=== PATIENT | female | born 1965 | race Caucasian/White ===

== ENCOUNTER 2021-07-16 21:17 | Inpatient (IN) | payer BC ==
[~2021-07-16 21:17] MED LIST: Iopamidol-370 76% 500 ML 1 ML ONE
[2021-07-16] MEDS ORDERED: Morphine 4 MG/ML VIAL ONE (21:48)
[2021-07-16] MEDS ORDERED: Ondansetron PF 4 MG/2 ML Vial ONE (21:48)
[2021-07-16 21:52] LABS: Hemoglobin 16.8 g/dL (12.0-16.0); Mean Corpuscular HGB CONC 33.1 g/dL (32.0-36.0); Mean Corpuscular Hemoglobin 37.8 pg (27.0-31.0); Mean Platelet Volume 8.2 fL (7.4-10.4); Platelet Count 133 thou/uL (130-400); RBC Distribution Width 13.3 % (11.5-14.5); Red Blood Cell (RBC) Count 4.44 mill/uL (4.20-5.40); White Blood Cell (WBC) Count 12.1 thou/uL (4.8-10.8)
[2021-07-16 21:58] LABS: ALT (SGPT) 95 U/L (8-55); AST (SGOT) 106 U/L (5-34); Albumin 3.5 g/dL (3.5-5.0); Alkaline Phosphatase 86 U/L (40-110); Anion Gap 15 mmol/L (10-20); BUN (Urea Nitrogen) 11 mg/dL (9.8-20.1); Bilirubin, Total 1.1 mg/dL (0.2-1.2); Calc. Creatinine Clearance 0 mL/min (70-130); Calcium 8.4 mg/dL (7.8-10.44); Carbon Dioxide 22 mmol/L (22-29); Chloride 107 mmol/L (98-107); Globulin 3.1 g/dL (2.4-3.5); Glucose 136 mg/dL (70-105); Potassium 3.5 mmol/L (3.5-5.1); Protein, Total 6.6 g/dL (6.0-8.3); Sodium 140 mmol/L (136-145)
[2021-07-16 22:05] LABS: Band 23 % (5-11); Lymphocytes 6 % (21-51); MDiff Complete? YES; Macrocytosis SLIGHT = 6-15 cells (100X) (0-5/hpf); Monocytes 7 % (0-10); Neutrophil 62 % (42-75); Platelet Morphology Comment Appears Adequate; Reactive Lymphocytes 2 % (0-10)
[2021-07-16] MEDS ORDERED: Acetaminophen 500 MG TAB ONE (22:50)
[2021-07-16] MEDS ORDERED: Ketorolac Tromethamine 30 MG/ML VIAL ONE (22:50)
[2021-07-16] MEDS ORDERED: Cyclobenzaprine 10 MG TAB PO PRN (22:57)
[2021-07-16] MEDS ORDERED: traMADol HCl 50 MG TAB PO PRN (22:57)
[2021-07-16] MEDS ORDERED: Ondansetron PF 4 MG/2 ML Vial IVP PRN (22:59)
[2021-07-16] MEDS ORDERED: Promethazine HCl 25 MG/ML VIAL IM PRN (22:59)
[2021-07-16] MEDS ORDERED: hydrALAZINE 20 MG/ML VIAL SLOW IVP PRN (22:59)
[2021-07-17] MEDS: Acetaminophen 500 MG TAB PO SCH ×4 (01:20→17:30)
[2021-07-17] MEDS: Sodium Chloride 0.9% 1,000 ML IV SCH ×2 (01:20→09:25)
[2021-07-17] MEDS: Ketorolac Tromethamine 30 MG/ML VIAL IVP SCH ×2 (01:21→05:28)
[2021-07-17] MEDS: traMADol HCl 50 MG TAB PO SCH ×4 (01:21→17:30)
[2021-07-17 02:15] VITALS: BMI 29.6
[2021-07-17] MEDS: Morphine 2 MG/ML VIAL SLOW IVP PRN (05:27)
[2021-07-17] MEDS ORDERED: Acetaminophen 325 MG TAB PO SCH (06:00)
[2021-07-17 06:55] LABS: #Lymphocytes 1.4 thou/uL (1.20-3.40); #Monocytes 0.4 thou/uL (0.11-0.59); #Neutrophils 4.1 thou/uL (1.40-6.50); %Basophils 0.7 % (0.0-1.0); %Eosinophils 0.7 % (0.0-10.0); %Lymphocytes 23.4 % (21.0-51.0); %Monocytes 6.7 % (0.0-10.0); %Neutrophils 68.5 % (42.0-75.0); Hemoglobin 14.8 g/dL (12.0-16.0); Mean Corpuscular HGB CONC 32.5 g/dL (32.0-36.0); Mean Corpuscular Hemoglobin 37.5 pg (27.0-31.0); Mean Platelet Volume 8.1 fL (7.4-10.4); Platelet Count 157 thou/uL (130-400); RBC Distribution Width 13.2 % (11.5-14.5); Red Blood Cell (RBC) Count 3.93 mill/uL (4.20-5.40)
[2021-07-17 07:14] LABS: Anion Gap 11 mmol/L (10-20); BUN (Urea Nitrogen) 9 mg/dL (9.8-20.1); Calc. Creatinine Clearance 118 mL/min (70-130); Calcium 7.5 mg/dL (7.8-10.44); Carbon Dioxide 24 mmol/L (22-29); Chloride 108 mmol/L (98-107); Glucose 90 mg/dL (70-105); Phosphorus 3.9 mg/dL (2.3-4.7); Potassium 3.5 mmol/L (3.5-5.1); Sodium 139 mmol/L (136-145)
[2021-07-17] MEDS ORDERED: Famotidine/PF 20 mg/2ml Vial SLOW IVP SCH (09:00)
[2021-07-17] MEDS ORDERED: Gabapentin 100 MG CAP PO SCH ×2 (09:00→15:00)
[2021-07-17 09:07] LABS: SARS-CoV-2 NAA Rapid Test Not Detected (NotDetected)
[2021-07-17] MEDS: Senokot S 8.6-50 MG TAB PO SCH ×2 (09:18→21:19)
[2021-07-17] MEDS: Polyethylene Glycol 3350 17 GM Packet PO SCH (09:18)
[2021-07-17] MEDS ORDERED: Moisturizing Cream (Eucerin) 113 GM JAR TOP PRN (09:33)
[2021-07-17] MEDS ORDERED: Famotidine 20 MG TAB PO SCH (11:45)
[2021-07-17] MEDS ORDERED: traMADol HCl 50 MG TAB PO SCH (12:00)
[2021-07-17] MEDS: Ibuprofen 200 MG TAB PO SCH ×2 (13:24→21:15)
[2021-07-17] MEDS: tiZANidine HCl 4 MG TAB PO SCH ×2 (14:53→21:15)
[2021-07-17] MEDS: Gabapentin 300 MG CAP PO SCH ×2 (14:53→21:14)
[2021-07-17] MEDS: Famotidine 20 MG TAB PO SCH (21:19)
[2021-07-18] MEDS: Acetaminophen 500 MG TAB PO SCH ×2 (00:19→03:03)
[2021-07-18] MEDS: traMADol HCl 50 MG TAB PO SCH ×2 (00:19→03:04)
[2021-07-18] MEDS: Ibuprofen 200 MG TAB PO SCH ×2 (03:03→13:27)
[2021-07-18 06:29] LABS: ALT (SGPT) 73 U/L (8-55); AST (SGOT) 55 U/L (5-34); Albumin 3.4 g/dL (3.5-5.0); Alkaline Phosphatase 71 U/L (40-110); Bilirubin, Direct 0.5 mg/dL (0.1-0.3); Bilirubin, Total 1.2 mg/dL (0.2-1.2); Protein, Total 6.3 g/dL (6.0-8.3)
[2021-07-18] MEDS: Morphine 2 MG/ML VIAL SLOW IVP PRN (06:42)
[2021-07-18] MEDS ORDERED: Morphine 2 MG/ML VIAL SLOW IVP SCH (06:45)
[2021-07-18] MEDS: Polyethylene Glycol 3350 17 GM Packet PO SCH (09:31)
[2021-07-18] MEDS: Senokot S 8.6-50 MG TAB PO SCH (09:31)
[2021-07-18] MEDS: Famotidine 20 MG TAB PO SCH (09:32)
[2021-07-18] MEDS: Gabapentin 300 MG CAP PO SCH (09:32)
[2021-07-18] MEDS: tiZANidine HCl 4 MG TAB PO SCH ×2 (09:32→14:25)
[2021-07-18] MEDS: Enoxaparin Sodium 40 MG/0.4 ML SYRINGE SC SCH ×2 (09:33→10:03)
[2021-07-18] MEDS ORDERED: Acetaminophen/Codeine 30-300mg Tablet PO PRN (09:48)
[2021-07-18] MEDS ORDERED: Acetaminophen/Codeine 30-300mg Tablet PO SCH (10:00)
[2021-07-18] MEDS ORDERED: traMADol HCl 50 MG TAB PO SCH ×2 (10:00→12:00)
[2021-07-18 11:39] VITALS: TEMP 97.7
[2021-07-18 14:40] VITALS: BP 134/91
[2021-07-18] MEDS ORDERED: Pregabalin 75 MG CAP PO SCH (21:00)
== END 2021-07-18 15:24 | disposition home or self-care (01) | DRG 184 ==
LOC: ERS 21:17 → SURG B 22:32
PROVIDERS: ADMIT Surgery; ATTEND Surgery
DX: S22.41XA Multiple fractures of ribs, right side, initial encounter for closed fracture (principal); N17.9 Acute kidney failure, unspecified; Z20.822 Contact with and (suspected) exposure to COVID-19; S42.031A Displaced fracture of lateral end of right clavicle, initial encounter for closed fracture; R74.01 Elevation of levels of liver transaminase levels; L40.9 Psoriasis, unspecified; F17.210 Nicotine dependence, cigarettes, uncomplicated; I10 Essential (primary) hypertension; K74.60 Unspecified cirrhosis of liver; V80.010A Animal-rider injured by fall from or being thrown from horse in noncollision accident, initial encounter; Y93.52 Activity, horseback riding; Z79.899 Other long term (current) drug therapy
CPT/HCPCS: 36415; 70450; 71045; 71260; 72125; 80048; 80053; 80076; 83735; 84100; 85025; 96374; 96375; G0390; J1650; J1885; J2270; J2405; J7050; Q9967; U0002